=== PATIENT | male | born 1995 | race African-American/Black ===

== ENCOUNTER 2018-03-25 18:35 | Emergency (ER) | payer OTHER ==
[~2018-03-25] VITALS: Ht 177.8 cm; Wt 77.3 kg
[~2018-03-25 18:35] MED LIST: EXCEDRI2 OR; FOCALIN XR15 MG OR; KEFLEX500 M1 PO; KLONOPIN1 MG OR; NO; NO MEDS; SEROQUEL25 MG OR; ZOFRAN ODT4 MG OR; ZOFRAN ODT4 MG PO
[2018-03-25 19:09] LABS: HEMATOCRIT 41.3 % (39.0-50.0); IMMATURE GRANULOCYTES 0.4 % (0.0-1.0); MEAN CELL VOLUME 74.3 fL CALC (80.0-100.0); MEAN CORPUSCULAR HGB 23.4 pG CALC (26.0-32.0); MEAN CORPUSCULAR HGB CONC 31.5 g/L CALC (32.0-36.0); NEUT# 11.57 thou/uL (1.82-7.42); RED BLOOD COUNT 5.56 mill/uL (4.70-6.10); RED CELL DISTRI WIDTH 13.4 % (11.5-15.5)
[2018-03-25 19:22] LABS: ALBUMIN 4.2 g/dL (3.2-5.0); ALKALINE PHOSPHATASE 89 u/l (38-126); BILIRUBIN, TOTAL 0.4 mg/dL (0.0-1.4); BUN 13 mg/dL (9-20); BUN/CREATININE RATIO 14 (12-20 (CALC)); CARBON DIOXIDE 27 mmol/l (22-30); CHLORIDE 103 mmol/l (95-108); CPK 482 u/l (52-200); CREATININE 0.9 mg/dL (0.7-1.3); GFR > 60 ML/MIN (>=60 (CALC)); GFR FOR AFR.AMER. > 60 ML/MIN (>=60 (CALC)); MAGNESIUM 1.6 mg/dL (1.6-2.3); SGOT/AST 42 u/l (17-59); SGPT/ALT 66 u/l (21-72); SODIUM 141 mmol/l (137-146)
[2018-03-25 19:27] LABS: ANION GAP 15 (6-22 (CALC)); POTASSIUM 4.3 mmol/l (3.5-5.1)
[2018-03-25 19:30] LABS: MYOGLOBIN 130 ng/mL (0 - 121)
[2018-03-25 20:23] LABS: URINE BILIRUBIN - DIPSTICK NEGATIVE (NEGATIVE); URINE BLOOD DIPSTICK NEGATIVE (NEGATIVE); URINE COLOR YELLOW; URINE GLUCOSE - DIPSTICK NEGATIVE (NEGATIVE); URINE KETONE TRACE mg/dL (NEGATIVE); URINE LEUK ESTERASE NEGATIVE (NEGATIVE); URINE NITRITE - DIPSTICK NEGATIVE (Negative); URINE PROTEIN - DIPSTICK NEGATIVE (NEG-TRACE); URINE UROBILINOGEN - DIPSTICK 0.2 E.U./dL (0.2)
[2018-03-25 20:26] LABS: URINE CLARITY CLEAR
[2018-03-25 20:28] LABS: BARBITURATES NEGATIVE (NEGATIVE); COCAINE NEGATIVE (NEGATIVE); METHADONE NEGATIVE (NEGATIVE); OXCYCODONE NEGATIVE (NEGATIVE); TETRAHYDROCANNABIONOL NEGATIVE (NEGATIVE); TRICYLIC ANTIDEPRESSANTS NEGATIVE (NEGATIVE)
[2018-03-25 20:59] VITALS: BP 134/68
== END 2018-03-25 21:15 | disposition home or self-care (01) ==
LOC: ED 18:35
PROVIDERS: Family Medicine
DX: T67.5XXA Heat exhaustion, unspecified, initial encounter (principal); M62.82 Rhabdomyolysis; R51 Headache; R20.0 Anesthesia of skin; Y93.67 Activity, basketball

== ENCOUNTER 2018-06-13 14:42 | Emergency (ER) | payer OTHER ==
[~2018-06-13] VITALS: Ht 177.8 cm; Wt 88.0 kg
[2018-06-13 15:26] VITALS: BP 142/82
== END 2018-06-13 15:44 | disposition home or self-care (01) ==
LOC: ED 14:42
DX: G44.309 Post-traumatic headache, unspecified, not intractable (principal); F07.81 Postconcussional syndrome; S09.90XS Unspecified injury of head, sequela; W50.0XXS Accidental hit or strike by another person, sequela

== ENCOUNTER 2018-06-23 20:48 | Emergency (ER) | payer OTHER ==
[~2018-06-23] VITALS: Ht 177.8 cm; Wt 90.0 kg
[2018-06-23 21:39] LABS: INFLUENZA A NONE DETECTED (NONE DETECT); INFLUENZA B NONE DETECTED (NONE DETECT)
[2018-06-23] MEDS ORDERED: AMOXICILLIN500 MG PO (21:48)
[2018-06-23 22:11] VITALS: BP 140/59
== END 2018-06-23 22:10 | disposition home or self-care (01) ==
LOC: ED 20:48
PROVIDERS: Emergency Medicine
DX: J02.9 Acute pharyngitis, unspecified (principal); H66.92 Otitis media, unspecified, left ear; R05 Cough; J34.89 Other specified disorders of nose and nasal sinuses

== ENCOUNTER 2018-07-24 17:29 | Emergency (ER) | payer OTHER ==
[~2018-07-24] VITALS: Ht 177.8 cm; Wt 85.0 kg
[~2018-07-24 17:29] MED LIST changes: +AMOXICILLIN500 MG PO
[2018-07-24 17:50] VITALS: BP 146/88
== END 2018-07-24 17:56 | disposition home or self-care (01) ==
LOC: ED 17:29
DX: S93.402A Sprain of unspecified ligament of left ankle, initial encounter (principal); X50.1XXA Overexertion from prolonged static or awkward postures, initial encounter; Y93.67 Activity, basketball

== ENCOUNTER 2018-08-17 13:22 | Emergency (ER) | payer OTHER ==
[~2018-08-17] VITALS: Ht 177.8 cm; Wt 92.0 kg
[2018-08-17 14:45] LABS: INFLUENZA A NONE DETECTED (NONE DETECT); INFLUENZA B NONE DETECTED (NONE DETECT)
[2018-08-17 15:10] VITALS: BP 139/85
== END 2018-08-17 15:10 | disposition home or self-care (01) ==
LOC: ED 13:22
PROVIDERS: Family Medicine
DX: B34.9 Viral infection, unspecified (principal); J02.9 Acute pharyngitis, unspecified; R05 Cough; R09.81 Nasal congestion

== ENCOUNTER 2018-11-02 20:09 | Emergency (ER) | payer OTHER ==
[~2018-11-02] VITALS: Ht 177.8 cm; Wt 86.0 kg
[2018-11-02 22:52] VITALS: BP 118/66
== END 2018-11-02 22:52 | disposition home or self-care (01) ==
LOC: ED 20:09
DX: R51 Headache (principal); R11.0 Nausea
CPT/HCPCS: J0131

== ENCOUNTER 2019-10-27 | Emergency (ER) | payer OTHER | END 2019-10-27 18:47 | disposition home or self-care (01) | DX: R51 Headache (principal) ==

== ENCOUNTER 2019-12-17 | Emergency (ER) | payer OTHER ==
[2019-12-17 01:35] LABS: HEMATOCRIT 43.6 % (39.0-50.0); HEMOGLOBIN 13.5 g/dl (14.0-18.0); IMMATURE GRANULOCYTES 0.7 % (0.0-5.0); MEAN CELL VOLUME 73.8 fL CALC (80.0-100.0); MEAN CORPUSCULAR HGB 22.8 pG CALC (26.0-32.0); NEUT# 16.26 thou/uL (1.82-7.42); RED BLOOD COUNT 5.91 mill/uL (4.70-6.10); RED CELL DISTRI WIDTH 14.2 % (11.5-15.5)
[2019-12-17 01:54] LABS: ALBUMIN 4.9 g/dL (3.2-5.0); ALKALINE PHOSPHATASE 86 u/l (38-126); AMYLASE 72 u/l (30-110); ANION GAP 18 (6-22 (CALC)); BILIRUBIN, TOTAL 0.5 mg/dL (0.0-1.4); BUN 15 mg/dL (9-20); BUN/CREATININE RATIO 14 (12-20 (CALC)); CARBON DIOXIDE 22 mmol/l (22-30); CHLORIDE 104 mmol/l (95-108); CPK 151 u/l (52-200); ETHYL ALCOHOL 0 mg/dl (0-30); GFR > 60 ML/MIN (>=60 (CALC)); GFR FOR AFR.AMER. > 60 ML/MIN (>=60 (CALC)); LIPASE 61 u/l (23-300); MAGNESIUM 1.5 mg/dL (1.6-2.3); POTASSIUM 4.6 mmol/l (3.5-5.1); SGOT/AST 20 u/l (17-59); SODIUM 139 mmol/l (137-146); TOTAL PROTEIN 8.2 g/dL (6.3-8.2)
[2019-12-17 02:54] LABS: URINE BILIRUBIN - DIPSTICK NEGATIVE (NEGATIVE); URINE BLOOD DIPSTICK NEGATIVE (NEGATIVE); URINE COLOR YELLOW; URINE GLUCOSE - DIPSTICK NEGATIVE (NEGATIVE); URINE KETONE 15 mg/dL (NEGATIVE); URINE LEUK ESTERASE NEGATIVE (NEGATIVE); URINE NITRITE - DIPSTICK NEGATIVE (Negative); URINE PROTEIN - DIPSTICK NEGATIVE (NEG-TRACE); URINE SPECIFIC GRAVITY >=1.030; URINE UROBILINOGEN - DIPSTICK 0.2 E.U./dL (0.2)
[2019-12-17 02:56] LABS: BARBITURATES NEGATIVE (NEGATIVE); COCAINE NEGATIVE (NEGATIVE); METHADONE NEGATIVE (NEGATIVE); OXCYCODONE NEGATIVE (NEGATIVE); TETRAHYDROCANNABIONOL NEGATIVE (NEGATIVE); TRICYLIC ANTIDEPRESSANTS NEGATIVE (NEGATIVE)
[2019-12-17] MEDS ORDERED: ONDANSETRON4 MG PO (03:14)
== END 2019-12-17 03:35 | disposition home or self-care (01) ==
DX: R11.2 Nausea with vomiting, unspecified (principal); D72.829 Elevated white blood cell count, unspecified; R51 Headache

== ENCOUNTER 2021-03-26 01:17 | Emergency (ER) | payer OTHER ==
[~2021-03-26] VITALS: Ht 177.8 cm; Wt 84.0 kg
[~2021-03-26 01:17] MED LIST changes: +ONDANSETRON4 MG PO
[2021-03-26 01:54] LABS: HEMATOCRIT 44.3 % (39.0-50.0); HEMOGLOBIN 13.8 g/dl (14.0-18.0); IMMATURE GRANULOCYTES 0.2 % (0.0-5.0); MEAN CELL VOLUME 74.8 fL CALC (80.0-100.0); MEAN CORPUSCULAR HGB 23.3 pG CALC (26.0-32.0); MEAN CORPUSCULAR HGB CONC 31.2 g/dL CAL (32.0-36.0); NEUT# 9.51 thou/uL (1.82-7.42); RED BLOOD COUNT 5.92 mill/uL (4.70-6.10); RED CELL DISTRI WIDTH 13.1 % (11.5-15.5)
[2021-03-26 02:09] LABS: ALBUMIN 4.5 g/dL (3.2-5.0); ALKALINE PHOSPHATASE 60 u/l (38-126); ANION GAP 15 (6-22 (CALC)); BILIRUBIN, TOTAL 0.4 mg/dL (0.0-1.4); BUN 14 mg/dL (9-20); BUN/CREATININE RATIO 13 (12-20 (CALC)); CARBON DIOXIDE 25 mmol/l (22-30); CHLORIDE 103 mmol/l (95-108); CREATININE 1.1 mg/dL (0.7-1.3); GFR > 60 ML/MIN (>=60 (CALC)); GFR FOR AFR.AMER. > 60 ML/MIN (>=60 (CALC)); POTASSIUM 4.2 mmol/l (3.5-5.1); SGOT/AST 27 u/l (17-59); SODIUM 138 mmol/l (137-146); TOTAL PROTEIN 7.5 g/dL (6.3-8.2)
[2021-03-26 06:00] VITALS: BP 122/61
== END 2021-03-26 08:11 | disposition home or self-care (01) ==
LOC: ED 01:17
PROVIDERS: Emergency Medicine
DX: R51.9 Headache, unspecified (principal)

== ENCOUNTER 2022-03-12 19:35 | Emergency (ER) | payer BC, OTHER ==
[~2022-03-12] VITALS: Ht 177.8 cm; Wt 80.0 kg
[2022-03-12 20:18] LABS: HEMATOCRIT 46.6 % (39.0-50.0); HEMOGLOBIN 14.5 g/dl (14.0-18.0); IMMATURE GRANULOCYTES 0.2 % (0.0-5.0); MEAN CELL VOLUME 74.1 fL CALC (80.0-100.0); MEAN CORPUSCULAR HGB 23.1 pG CALC (26.0-32.0); MEAN CORPUSCULAR HGB CONC 31.1 g/dL CAL (32.0-36.0); NEUT# 13.04 thou/uL (1.82-7.42); RED BLOOD COUNT 6.29 mill/uL (4.70-6.10); RED CELL DISTRI WIDTH 13.7 % (11.5-15.5)
[2022-03-12 20:21] LABS: URINE BILIRUBIN - DIPSTICK NEGATIVE (NEGATIVE); URINE BLOOD DIPSTICK NEGATIVE (NEGATIVE); URINE COLOR YELLOW; URINE GLUCOSE - DIPSTICK NEGATIVE (NEGATIVE); URINE KETONE 15 mg/dL (NEGATIVE); URINE LEUK ESTERASE NEGATIVE (NEGATIVE); URINE PROTEIN - DIPSTICK TRACE mg/dL (NEG-TRACE); URINE SPECIFIC GRAVITY 1.015; URINE UROBILINOGEN - DIPSTICK 0.2 E.U./dL (0.2)
[2022-03-12 20:24] LABS: URINE NITRITE - DIPSTICK NEGATIVE (Negative)
[2022-03-12 20:34] VITALS: BP 125/80
[2022-03-12 20:35] LABS: ALBUMIN 4.9 g/dL (3.2-5.0); ALKALINE PHOSPHATASE 68 u/l (38-126); ANION GAP 16 (6-22 (CALC)); BILIRUBIN, TOTAL 0.5 mg/dL (0.0-1.4); BUN 12 mg/dL (9-20); BUN/CREATININE RATIO 11 (12-20 (CALC)); CARBON DIOXIDE 21 mmol/l (22-30); CHLORIDE 104 mmol/l (95-108); CPK 608 u/l (52-200); CREATININE 1.1 mg/dL (0.7-1.3); GFR FOR AFR.AMER. > 60 ML/MIN (>=60 (CALC)); GFR OTHER RACES > 60 ML/MIN (>=60 (CALC)); POTASSIUM 4.7 mmol/l (3.5-5.1); SGOT/AST 35 u/l (17-59); SODIUM 135 mmol/l (137-146)
[2022-03-12 20:47] LABS: MYOGLOBIN 173 ng/mL (0 - 121)
== END 2022-03-13 00:45 | disposition home or self-care (01) | DRG 948 ==
LOC: ED 19:35
PROVIDERS: Emergency Medicine
DX: R53.1 Weakness (principal); R41.82 Altered mental status, unspecified; R51.9 Headache, unspecified

== ENCOUNTER 2023-02-14 21:18 | Emergency (ER) | payer BC, OTHER ==
[2023-02-14] VITALS (7 sets, daily range): BP systolic 122–139; BP diastolic 72–88
[~2023-02-14] VITALS: Ht 177.8 cm; Wt 83.9 kg
[2023-02-14 22:45] LABS: BASO% 0.3 % (0-3); EOS% 0.3 % (0-8); HEMATOCRIT 46.3 % (39.0-50.0); HEMOGLOBIN 14.1 g/dl (14.0-18.0); IMMATURE GRANULOCYTES 0.2 % (0.0-5.0); LYMPH% 21.9 % (15-41); MEAN CORPUSCULAR HGB 22.9 pG CALC (26.0-32.0); MEAN CORPUSCULAR HGB CONC 30.5 g/dL CAL (32.0-36.0); NEUT# 9.47 thou/uL (1.82-7.42); NEUT% 71.3 % (42-76); RED BLOOD COUNT 6.17 mill/uL (4.70-6.10); RED CELL DISTRI WIDTH 13.6 % (11.5-15.5)
[2023-02-14 22:58] LABS: ALBUMIN 4.6 g/dL (3.2-5.0); ALKALINE PHOSPHATASE 70 u/l (38-126); BILIRUBIN, TOTAL 0.3 mg/dL (0.2-1.3); BUN 10 mg/dL (9-20); BUN/CREATININE RATIO 8 (12-20 (CALC)); CARBON DIOXIDE 25 mmol/l (22-30); CHLORIDE 103 mmol/l (95-108); CREATININE 1.2 mg/dL (0.7-1.3); GFR FOR AFR.AMER. > 60 ML/MIN (>=60 (CALC)); GFR OTHER RACES > 60 ML/MIN (>=60 (CALC)); SGOT/AST 29 u/l (17-59); SODIUM 138 mmol/l (137-146); TOTAL PROTEIN 7.6 g/dL (6.3-8.2)
[2023-02-14 23:00] LABS: ANION GAP 14 (6-22 (CALC)); POTASSIUM 3.7 mmol/l (3.5-5.1)
[2023-02-15 00:01] VITALS: BP 104/53
[2023-02-15 01:00] VITALS: BP 103/59
== END 2023-02-15 01:23 | disposition home or self-care (01) | DRG 103 ==
LOC: ED 21:18
PROVIDERS: Emergency Medicine
DX: R51.9 Headache, unspecified (principal)

== ENCOUNTER 2024-04-19 20:27 | Emergency (ER) | payer BC ==
[~2024-04-19] VITALS: Ht 177.8 cm; Wt 92.0 kg
[2024-04-19] MEDS ORDERED: ACETAMINOPHEN 500 MG TAB PO ONE (21:40)
[2024-04-19] MEDS ORDERED: IBUPROFEN 800 MG/TAB PO ONE (21:40)
[2024-04-19 21:45] VITALS: BP 131/81
[2024-04-19 22:00] VITALS: BP 124/68
[2024-04-19 22:15] VITALS: BP 121/68
[2024-04-19 23:01] VITALS: BP 135/74
[2024-04-19 23:03] VITALS: BP 135/74
== END 2024-04-19 23:03 | disposition home or self-care (01) | DRG 563 ==
LOC: ED 20:27
PROC: 0RSXXZZ Reposition Left Finger Phalangeal Joint, External Approach (ICD-10-PCS; principal; 2024-04-19)
DX: S63.287A Dislocation of proximal interphalangeal joint of left little finger, initial encounter (principal); W21.05XA Struck by basketball, initial encounter; Y93.67 Activity, basketball; Y92.830 Public park as the place of occurrence of the external cause